=== PATIENT | male | born 1960 ===

== ENCOUNTER → 2021-04-06 | Day surgery (SDC) | payer BC, OTHER ==
--- NOTE | 2021-04-06 10:51 | RAD REPORT ---
EXAM DESCRIPTION: US - Guided FNA Non Breast - 04/06/2021 10:33 am CLINICAL HISTORY: E04.2 COMPARISON: No comparisons FINDINGS: Preoperative diagnosis: Right thyroid nodule. Post operative diagnosis: Same. Conscious Sedation: None Fluoroscopy time: None Contrast used: None Estimated blood loss: Minimal Specimens:4 fine-needle aspirates of the right thyroid nodule were obtained The right neck was prepped and draped in the usual sterile fashion. 1% lidocaine was infiltrated into the subcutaneous tissues for local anesthesia. Real time ultrasound scanning of the right neck demon strated the suspicious right thyroid nodule. 4 fine-needle aspirates were obtained. These to pass the on site patient support assistant. IMPRESSION: Technically successful ultrasound-guided fine-needle aspiration of a right thyroid nodul e.
== END ==
LOC: FNA 10:00
PROVIDERS: ATTEND Otolaryngology
PROC: 0GJK3ZZ Inspection of Thyroid Gland, Percutaneous Approach (ICD-10-PCS; principal; 2021-04-06)
DX: E04.2 Nontoxic multinodular goiter (principal)
CPT/HCPCS: 88162